=== PATIENT | female | born 2000 | race Native Hawaiian/Other Pacific Islander ===

== ENCOUNTER 2023-06-10 20:20 | Emergency (ER) | payer OTHER, SELFPAY ==
--- NOTE | ~2023-06-10 | XR_ITS ---
EXAMINATION: XR shoulder RT min 2V DATE: 06/10/2023 20:37 INDICATION: Right shoulder pain TECHNIQUE: AP internally and externally rotated, AP oblique externally rotated and transscapular Y vi ews of the right shoulder were obtained. COMPARISON: None FINDINGS: Normal alignment. No fracture. Glenohumeral joint is normal. Acromioclavicular joint is normal. Soft tissues are unremarkable. Right lung is clear. IMPRESSION: Negative right shoulder radiographs. Reviewed, dictated and finalized at location A.
[2023-06-10 20:29] VITALS: BP 125/94; PULSE 67; RESP 16; TEMP 36.8; O2SAT 98
--- NOTE | 2023-06-10 20:38 | ED.GENADULT ---
HPI - General Adult General Chief complaint: Extremity Injury, Upper Stated complaint: R shoulder pain after fall Time Seen by Provider: 06/10/23 20:27 Source: patient Mode of arrival: ambulatory Limitations: no limitations History of Present Illness HPI narrative: This is a 23-year-old female who presents to the ED with chief complaint of right shoulder pain this started this morning after getting out of the shower and falling. Reports he fell directly onto the right shoulder. He did not take any pain meds prior to arrival. Pain limited to the right shoulder only. Denies numbness, weakness or any further site of injury Related Data Allergies Allergy/AdvReac Type Severity Reaction Status Date / Time iodine Allergy Hives Verified 06/10/23 20:22 Review of Systems Review of Systems: All systems as dictated in HPI Exam Narrative: GENERAL: Well-appearing, well-nourished, and in no acute distress. HEAD: Normocephalic, atraumatic. EYES: PERRLA and EOMI. ENT: Nares clear, no rhinorrhea or epistaxis. Mucous membranes moist. Oropharynx without tonsillar hypertrophy exudate or other lesions. NECK: Supple. No adenopathy or masses. CHEST: No respiratory distress. Clear to auscultation. No wheezes rales or rhonchi HEART: Regular rate and rhythm. No murmur heard. Normal peripheral pulses. ABDOMEN: Soft, nontender, nondistended, normal active bowel sounds. MSK: Normal range of motion. No edema. SKIN: Warm, dry, no rash. NEURO: Alert and oriented x3. No focal deficits. PSYCH: Normal mood and affect. Course Vital Signs Vital signs: Vital Signs Temperature 98.2 F 06/10/23 20:29 Pulse Rate 67 06/10/23 20:29 Respiratory Rate 16 06/10/23 20:29 Blood Pressure 125/94 H 06/10/23 20:29 Pulse Oximetry 98 06/10/23 20:29 Temperature 98.2 F 06/10/23 20:29 Pulse Rate 67 06/10/23 20:29 Respiratory Rate 16 06/10/23 20:29 Blood Pressure 125/94 H 06/10/23 20:29 Pulse Oximetry 98 06/10/23 20:29 Medical Decision Making [facility] Narrative Medical decision making narrative: This is a 23 year old female presents to the ED with chief complaint of right shoulder injury that occurred this morning while slipping in the shower. Vitals are normal. Exam shows decreased range of motion of the right shoulder due to pain. No deformity. Neurovascularly intact distally. X-rays show no acute findings in the right shoulder. Symptoms most likely consistent with rotator cuff strain/tear. Patient will be given arm sling. Pt will be discharged in stable condition. Return precautions given and supportive measures discussed. Pt is understanding and agreeable with plan for discharge and follow-up with PCP. Vital Signs Vital Signs: Vital Signs Temperature 98.2 F 06/10/23 20:29 Pulse Rate 67 06/10/23 20:29 Respiratory Rate 16 06/10/23 20:29 Blood Pressure 125/94 H 06/10/23 20:29 Pulse Oximetry 98 06/10/23 20:29 Temperature 98.2 F 06/10/23 20:29 Pulse Rate 67 06/10/23 20:29 Respiratory Rate 16 06/10/23 20:29 Blood Pressure 125/94 H 06/10/23 20:29 Pulse Oximetry 98 06/10/23 20:29 Discharge Plan Discharge Clinical Impression: Rotator cuff strain Patient Disposition: Home, Self-Care Condition: Stable Instructions: Antibiotic Form, Rotator Cuff Injury (ED) Additional Instructions: Your exam and imaging today are reassuring overall. Please use arm sling for comfort. Tylenol 500 mg and ibuprofen 600 mg every 4-6 hours as needed for pain control. Follow-up with PCP or Orthopedics. If you have any new or worsening symptoms please return to the ER for further evaluation. Follow-up/Referrals: Cordell Hendrix MD [Physician] - Anup Zavala MD [Physician] - UNKNOWN,DOCTOR [Non-Staff] - Time of Disposition: 21:40
[2023-06-10 22:12] VITALS: BP 134/95; PULSE 64; RESP 14; O2SAT 99
== END 2023-06-10 22:13 | disposition home or self-care (01) ==
PROVIDERS: Emergency Provider Physician Assistant
DX: S46.011A Strain of muscle(s) and tendon(s) of the rotator cuff of right shoulder, initial encounter (principal); W18.2XXA Fall in (into) shower or empty bathtub, initial encounter
CPT/HCPCS: 73030; 99283; A4565

== ENCOUNTER 2023-06-29 06:44 | Outpatient (CLI) | payer OTHER, SELFPAY ==
--- NOTE | ~2023-06-29 | MR_ITS ---
MRI of the right shoulder Technique: Axial proton-density fat-sat images, coronal proton density fat-sat and T2 fat-sat images, and sagittal T1-weighted and T2 fat-sat images were acquired. Clinical History: Rotator cuff tear Findings: No significant degenerative changes AC joint present. Coracoclavicular, coracoacromial, and coracohumeral ligaments are intact. Supraspinatus and infraspinatus tendons are intact, without partial or full-thickness tear. Subscapul shahrzad tendon is intact, with minimal tendinosis. Tendon of the long head of the biceps is intact. No labral tear evident. Inferior glenohumeral ligament is intact. No significant joint effusion or degenerative change of the glenohumeral joint. No subacromial/subdeltoid bursitis. No muscle atrophy or edema. Impression: Minimal subscapularis tendinosis, otherwise unremarkable exam. Reviewed, dictated and finalized at [facility]. Impression: Minimal subscapularis tendinosis, otherwise unremarkable exam.
== END 2023-06-29 06:45 ==
PROVIDERS: PCP Orthopaedic Surgery; Visit Provider Orthopaedic Surgery
DX: M67.813 Other specified disorders of tendon, right shoulder (principal)
CPT/HCPCS: 73221